=== PATIENT | female | born 1950 | race Caucasian/White ===

== ENCOUNTER 2019-02-02 07:27 | Day surgery (SDC) | payer MEDICARE ==
[~2019-02-02 07:27] MED LIST: CALCIUM 600+D31 TA1 PO; DICLOFENAC SODI75 MG PO; FERR SULFATE325 MG PO; FISH OIL OMEGA-1 CAP PO; IBUPROFEN600 MG PO; MECLIZINE HCL25 MG PO; TRAMADOL HCL50 MG PO; TURMERIC500 MG PO; VITAMIN B-121000 MCG PO
[2019-02-02 10:06] VITALS: BP 104/69
== END 2019-02-02 10:20 | disposition home or self-care (01) ==
LOC: ENDO 07:27
PROVIDERS: ATTEND Internal Medicine Gastroenterology
PROC: 0DJD8ZZ Inspection of Lower Intestinal Tract, Via Natural or Artificial Opening Endoscopic (ICD-10-PCS; principal; 2019-02-02)
DX: K57.31 Diverticulosis of large intestine without perforation or abscess with bleeding (principal); K64.4 Residual hemorrhoidal skin tags; K64.8 Other hemorrhoids